=== PATIENT | male | born 1950 | race Caucasian/White ===

== ENCOUNTER 2019-11-04 14:32 | Emergency (ER) | payer OTHER, SELFPAY ==
[~2019-11-04] VITALS: Ht 177.8 cm; Wt 83.9 kg
[2019-11-04 14:37] VITALS: Ht 177.8 cm; Wt 83.9 kg
[2019-11-04 15:04] LABS: BASOPHIL % 0.2 % (0-2); PLATELET COUNT 109 x10^3mcL (130-400); RED CELL DISTRIBUTION WIDTH 12.6 % (11.5-14.5)
[2019-11-04 16:00] LABS: CALCIUM 8.5 mg/dL (8.5-10.1); CARBON DIOXIDE 27.3 mmol/L (21-32); CHLORIDE SERUM 102 mmol/L (98-107); CREATININE SERUM 1.2 mg/dL (0.7-1.3); GFR1 > 60 mL/min; GLUCOSE SERUM 126 mg/dL (74-106); POTASSIUM SERUM 4.5 mmol/L (3.5-5.1); SODIUM SERUM 136 mmol/L (136-145)
[2019-11-04 16:05] LABS: ALKALINE PHOSPHATASE 53 U/L (46-116); ALT/SGPT 19 U/L (16-63); AST/SGOT 22 U/L (15-37); BILIRUBIN TOTAL 0.44 mg/dL (0.20-1.00); TOTAL PROTEIN, SERUM 6.7 g/dL (6.4-8.2)
[2019-11-04 16:06] LABS: ALBUMIN 2.9 g/dL (3.4-5.0)
[2019-11-04 18:34] VITALS: BP 104/43
== END 2019-11-04 18:10 | disposition home or self-care (01) ==
LOC: ED 14:32
PROVIDERS: Emergency Medicine
DX: U07.1 COVID-19 (principal); J12.89 Other viral pneumonia
CPT/HCPCS: 83880; J0456; J1885; J3490; J7030; Q0092